=== PATIENT | female | born 1995 | race African-American/Black ===

== ENCOUNTER 2018-08-26 18:48 | Emergency (ER) | payer BC ==
[~2018-08-26] VITALS: Ht 160 cm; Wt 48.5 kg
[2018-08-26 18:48] VITALS: BP 119/82
== END 2018-08-26 21:17 | disposition home or self-care (01) ==
LOC: ER 18:52
DX: K14.0 Glossitis (principal); F12.90 Cannabis use, unspecified, uncomplicated
CPT/HCPCS: Z7502